=== PATIENT | female | born 1950 | race Caucasian/White ===

== ENCOUNTER 2018-08-22 08:30 | Emergency (ER) | payer MEDICARE ==
[2018-08-22 08:37] VITALS: TEMP 98.2
--- NOTE | 2018-08-22 09:05 | ED ---
General Adult HPI - General Chief complaint: Arrhythmia/Palpitations Stated complaint: palpitations Time Seen by Provider: 08/22/18 08:42 Source: patient, RN notes reviewed Mode of arrival: wheelchair Limitations: no limitations - History of Present Illness Initial comments: Patient is a pleasant 68-year-old female presenting to the emergency Department with complaints of palpitations. Onset of symptoms was this morning. Symptoms lasted around a half an hour. Patient felt her heart racing. No pain. Symptoms have resolved on their own. Patient is currently symptom-free. No history of similar symptoms previously. No associated dyspnea or nausea or diaphoresis. No previous history of dysrhythmia. Patient states she did find out that there was a family history of atrial fibrillation. - Related Data Home Medications Medication Instructions Recorded Confirmed Atorvastatin [Lipitor] 10 mg PO HS 08/22/18 08/22/18 Calcium Carbonate [Calcium] 600 mg PO DAILY 08/22/18 08/22/18 Losartan Potassium 50 mg PO HS 08/22/18 08/22/18 Vit C/E/Zn/Coppr/Lutein/Zeaxan 1 cap PO DAILY 08/22/18 08/22/18 [Preservision Areds 2 Softgel] Allergies Allergy/AdvReac Type Severity Reaction Status Date / Time diphenhydramine AdvReac Rapid Verified 08/22/18 09:09 [From Benadryl] Heart Rate Review of Systems ROS Statement: Those systems with pertinent positive or pertinent negative responses have been documented in the HPI. ROS Other: All systems not noted in ROS Statement are negative. Constitutional: Denies: fever Eyes: Denies: eye pain ENT: Denies: ear pain Respiratory: Denies: cough, dyspnea Cardiovascular: Reports: palpitations. Denies: chest pain Endocrine: Denies: fatigue Gastrointestinal: Denies: abdominal pain Genitourinary: Denies: dysuria Musculoskeletal: Denies: back pain Skin: Denies: rash Neurological: Denies: weakness Past Medical History Past Medical History: Hyperlipidemia, Hypertension Additional Past Medical History / Comment(s): MACULAR DEGENERATION History of Any Multi-Drug Resistant Organisms: None Reported Past Surgical History: No Surgical Hx Reported Past Psychological History: No Psychological Hx Reported Smoking Status: Never smoker Past Alcohol Use History: Occasional Past Drug Use History: None Reported General Exam Limitations: no limitations General appearance: alert, in no apparent distress Head exam: Present: atraumatic Eye exam: Present: normal appearance, PERRL ENT exam: Present: normal oropharynx Neck exam: Present: normal inspection Respiratory exam: Present: normal lung sounds bilaterally Cardiovascular Exam: Present: regular rate, normal rhythm, normal heart sounds Expanded Peripheral pulses: 2+: Radial (R), Radial (L), Dorsalis Pedis (R), Dorsalis Pedis (L) GI/Abdominal exam: Present: soft. Absent: tenderness Extremities exam: Present: normal inspection. Absent: pedal edema, calf tenderness Neurological exam: Present: alert Psychiatric exam: Present: normal affect, normal mood Skin exam: Present: normal color Course Vital Signs 08/22/18 08/22/18 08/22/18 08:34 09:06 09:20 Temperature 98.2 F Pulse Rate 77 75 Respiratory 16 53 H 12 Rate Blood Pressure 153/81 137/80 O2 Sat by Pulse 96 95 Oximetry EKG Findings - EKG Comments: EKG Findings:: Sinus rhythm with occasional premature atrial complex. LA 124. QRS 76. QT 370. QTc 434. Normal axis. Normal QRS. No acute ST change. Medical Decision Making - Medical Decision Making Patient reevaluated and resting comfortably in bed. Patient remained symptom- free. 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 Patient updated on results and need for follow-up. - Lab Data Result diagrams: 08/22/18 09:10 08/22/18 09:10 Lab Results 08/22/18 08/22/18 08/22/18 Range/Units 09:10 09:10 09:10 WBC 5.9 (3.8-10.6) k/uL RBC 4.74 (3.80-5.40) m/uL Hgb 14.7 (11.4-16.0) gm/dL Hct 45.0 (34.0-46.0) % MCV 95.1 (80.0-100.0) fL MCH 31.1 (25.0-35.0) pg MCHC 32.8 (31.0-37.0) g/dL RDW 12.7 (11.5-15.5) % Plt Count 191 (150-450) k/uL Neutrophils % 77 % Lymphocytes % 14 % Monocytes % 6 % Eosinophils % 2 % Basophils % 0 % Neutrophils # 4.5 (1.3-7.7) k/uL Lymphocytes # 0.8 L (1.0-4.8) k/uL Monocytes # 0.3 (0-1.0) k/uL Eosinophils # 0.1 (0-0.7) k/uL Basophils # 0.0 (0-0.2) k/uL PT (9.0-12.0) sec INR (<1.2) APTT (22.0-30.0) sec Sodium 140 (137-145) mmol/L Potassium 4.5 (3.5-5.1) mmol/L Chloride 108 H (98-107) mmol/L Carbon Dioxide 25 (22-30) mmol/L Anion Gap 7 mmol/L BUN 13 (7-17) mg/dL Creatinine 0.77 (0.52-1.04) mg/dL Est GFR (CKD-EPI)AfAm >90 (>60 ml/min/1.73 sqM) Est GFR (CKD-EPI)NonAf 78 (>60 ml/min/1.73 sqM) Glucose 118 H (74-99) mg/dL Calcium 9.3 (8.4-10.2) mg/dL Magnesium 2.0 (1.6-2.3) mg/dL Total Bilirubin 0.9 (0.2-1.3) mg/dL AST 24 (14-36) U/L ALT 26 (9-52) U/L Alkaline Phosphatase 71 (38-126) U/L Total Creatine Kinase 55 (30-135) U/L CK-MB (CK-2) 0.5 (0.0-2.4) ng/mL CK-MB (CK-2) Rel Index 0.9 Troponin I <0.012 (0.000-0.034) ng/mL Total Protein 6.9 (6.3-8.2) g/dL Albumin 4.1 (3.5-5.0) g/dL TSH 1.100 (0.465-4.680) mIU/L Free T4 1.24 (0.78-2.19) ng/dL Free T3 pg/mL 4.0 (2.8-5.3) pg/ml 08/22/18 Range/Units 09:10 WBC (3.8-10.6) k/uL RBC (3.80-5.40) m/uL Hgb (11.4-16.0) gm/dL Hct (34.0-46.0) % MCV (80.0-100.0) fL MCH (25.0-35.0) pg MCHC (31.0-37.0) g/dL RDW (11.5-15.5) % Plt Count (150-450) k/uL Neutrophils % % Lymphocytes % % Monocytes % % Eosinophils % % Basophils % % Neutrophils # (1.3-7.7) k/uL Lymphocytes # (1.0-4.8) k/uL Monocytes # (0-1.0) k/uL Eosinophils # (0-0.7) k/uL Basophils # (0-0.2) k/uL PT 10.1 (9.0-12.0) sec INR 1.0 (<1.2) APTT 21.4 L (22.0-30.0) sec Sodium (137-145) mmol/L Potassium (3.5-5.1) mmol/L Chloride (98-107) mmol/L Carbon Dioxide (22-30) mmol/L Anion Gap mmol/L BUN (7-17) mg/dL Creatinine (0.52-1.04) mg/dL Est GFR (CKD-EPI)AfAm (>60 ml/min/1.73 sqM) Est GFR (CKD-EPI)NonAf (>60 ml/min/1.73 sqM) Glucose (74-99) mg/dL Calcium (8.4-10.2) mg/dL Magnesium (1.6-2.3) mg/dL Total Bilirubin (0.2-1.3) mg/dL AST (14-36) U/L ALT (9-52) U/L Alkaline Phosphatase (38-126) U/L Total Creatine Kinase (30-135) U/L CK-MB (CK-2) (0.0-2.4) ng/mL CK-MB (CK-2) Rel Index Troponin I (0.000-0.034) ng/mL Total Protein (6.3-8.2) g/dL Albumin (3.5-5.0) g/dL TSH (0.465-4.680) mIU/L Free T4 (0.78-2.19) ng/dL Free T3 pg/mL (2.8-5.3) pg/ml - Radiology Data Radiology results: image reviewed (Chest x-ray shows no acute process) Disposition Clinical Impression: Palpitations Disposition: HOME SELF-CARE Condition: Stable Instructions: Heart Palpitations (ED) Additional Instructions: Please follow-up with primary care physician in the next day or 2 for recheck. You may need Holter monitor. You may also need cardiac echo done. Return for increased heart rate, chest pain, difficulty breathing, worsening or change in symptoms or other concerns. Is patient prescribed a controlled substance at d/c from ED?: No Referrals: Ryan Ross MD [Primary Care Provider] - 1-2 days Time of Disposition: 10:55
[2018-08-22 09:31] LABS: Basophils % (A) 0 %; Eosinophils # (A) 0.1 k/uL (0-0.7); Eosinophils % (A) 2 %; HGB 14.7 gm/dL (11.4-16.0); Lymphocytes # (A) 0.8 k/uL (1.0-4.8); Lymphocytes % (A) 14 %; MCH 31.1 pg (25.0-35.0); MCHC 32.8 g/dL (31.0-37.0); MCV 95.1 fL (80.0-100.0); Mean Platelet Volume 8.2; Monocytes # (A) 0.3 k/uL (0-1.0); Monocytes % (A) 6 %; Neutrophils # (A) 4.5 k/uL (1.3-7.7); Neutrophils % (A) 77 %; Platelet Count 191 k/uL (150-450); RBC 4.74 m/uL (3.80-5.40); RDW 12.7 % (11.5-15.5); WBC 5.9 k/uL (3.8-10.6)
--- NOTE | 2018-08-22 09:36 | XR ---
EXAMINATION TYPE: XR chest 2V DATE OF EXAM: 08/22/2018 COMPARISON: NONE HISTORY: Shortness of breath TECHNIQUE: Frontal and lateral views of the chest are obtained. FINDINGS: Scattered senescent parenchymal changes noted. Hyperinflation compatible with COPD. No evidence for infiltrate. No evidence for atelectasis. Heart size is stable. Mediastinal structures are stable and grossly unremarkable. No evidence for hilar prominence. Degenerative changes dorsal spine. IMPRESSION: 1. No evidence for acute pulmonary disease.
[2018-08-22 09:44] LABS: ALT 26 U/L (9-52); AST 24 U/L (14-36); Albumin 4.1 g/dL (3.5-5.0); Alkaline Phosphatase 71 U/L (38-126); Anion Gap 7 mmol/L; Blood Urea Nitrogen 13 mg/dL (7-17); Calcium 9.3 mg/dL (8.4-10.2); Carbon Dioxide 25 mmol/L (22-30); Chloride 108 mmol/L (98-107); Glucose 118 mg/dL (74-99); Potassium 4.5 mmol/L (3.5-5.1); Sodium 140 mmol/L (137-145); Total Bilirubin 0.9 mg/dL (0.2-1.3); Total Protein 6.9 g/dL (6.3-8.2)
[2018-08-22 09:48] LABS: Partial Thromboplastin Time 21.4 sec (22.0-30.0); Prothrombin Time 10.1 sec (9.0-12.0)
[2018-08-22 09:55] LABS: Creatine Kinase 55 U/L (30-135)
[2018-08-22 10:01] LABS: T4, Free (Free Thyroxine) 1.24 ng/dL (0.78-2.19)
[2018-08-22 10:09] LABS: Creatine Kinase MB 0.5 ng/mL (0.0-2.4); Troponin I <0.012 ng/mL (0.000-0.034)
[2018-08-22 11:10] VITALS: BP 127/71; PULSE 73; RESP 16
== END 2018-08-22 11:08 | disposition home or self-care (01) ==
LOC: EC 08:30
DX: R00.2 Palpitations (principal); E78.5 Hyperlipidemia, unspecified; I10 Essential (primary) hypertension; Z79.899 Other long term (current) drug therapy; Z88.8 Allergy status to other drugs, medicaments and biological substances
CPT/HCPCS: 36415; 71046; 80053; 82550; 82553; 83735; 84439; 84443; 84481; 84484; 85025; 85610; 85730; 93005; 99285

== ENCOUNTER 2021-03-18 06:07 | Day surgery (SDC) | payer MEDICARE ==
[2021-03-14 16:06] VITALS: BMI 23.9
[~2021-03-18 06:07] MED LIST: SODIUM CHLORIDE 0.9% 1,000 ML IV SCH
[2021-03-18 06:46] VITALS: RESP 16; TEMP 98.1
[2021-03-18] MEDS ORDERED: MIDAZOLAM 2 MG/2 ML VIAL IV ONE (07:34)
[2021-03-18] MEDS ORDERED: LIDOCAINE 1% INJ 10MG/ML (20 ML MDV) SQ ONE (07:35)
--- NOTE | 2021-03-18 08:04 | P.EPPROC ---
- EP Procedure Note Electrophysiology Procedure Note: Loop monitor implant Primary physicians: Central Lab Technician: Dr. Nguyen Indication: High risk of atrial fibrillation/AF detection Patient was brought to the EP lab in a fasting state. Written informed consent was obtained prior to the procedure. The left pectoral area was prepped and draped per protocol. Intravenous antibiotic was administered preoperatively. A subcutaneous Loop monitor was implanted successfully and the wound was closed per protocol. The device was programmed to detect significant juliane- arrhythmic and tachy-arrhythmic events, per protocol. Device and programming details: Programmed to AF detection Patient underwent EP procedure under conscious sedation/moderate sedation, monitoring of the level of consciousness and physiologic parameters including but not limited to vital signs and oxygenation. Patient tolerated the procedure well without any acute complications. Start time: 735 Stop time: 244
[2021-03-18 08:32] VITALS: BP 151/76; PULSE 73
== END 2021-03-18 08:28 | disposition home or self-care (01) ==
LOC: CATHEP 06:07
PROVIDERS: ATTEND Internal Medicine Clinical Cardiac Electrophysiology
DX: I47.1 Supraventricular tachycardia (principal); I10 Essential (primary) hypertension; E78.5 Hyperlipidemia, unspecified; Z79.899 Other long term (current) drug therapy; Z20.822 Contact with and (suspected) exposure to COVID-19
CPT/HCPCS: 33285; 87635; C1764; J2250; J0690; J2001

== ENCOUNTER 2021-09-05 12:51 | Day surgery (SDC) | payer MEDICARE ==
[2021-09-03 14:28] VITALS: BMI 24.7
[~2021-09-05 12:51] MED LIST changes: +LACTATED RINGERS 1,000 ML IV SCH; +LIDOCAINE 1% (10MG/ML) FOR IV START INTRADERMA PRN; +MORPHINE SULFATE 2 MG/ML SYRINGE IV PRN; +ONDANSETRON 4 MG/2 ML VIAL IVP ONE; -SODIUM CHLORIDE 0.9% 1,000 ML IV SCH
[2021-09-05] MEDS: SODIUM CHLORIDE 0.9% 1,000 ML IV SCH (13:28)
[2021-09-05] MEDS ORDERED: PROPOFOL 10 MG/ML 20 ML VIAL IV ONE (15:38)
[2021-09-05] MEDS ORDERED: ISOPROTERENOL 250 MCG/1.25 ML SYR IV ONE (15:38)
[2021-09-05] MEDS ORDERED: .fentaNYL (PF) 50 MCG/ML 2 ML AMP ONE (15:38)
[2021-09-05] MEDS ORDERED: LIDOCAINE 1% INJ 10MG/ML (20 ML MDV) ONE ×2 (15:38→15:43)
[2021-09-05] MEDS ORDERED: HEPARIN SODIUM,PORCINE 10,000 UNIT/ML 1 ML VIAL ONE (15:38)
[2021-09-05] MEDS ORDERED: MIDAZOLAM 2 MG/2 ML VIAL ONE (15:38)
[2021-09-05] MEDS ORDERED: LIDOCAINE 1% INJ 10MG/ML (20 ML MDV) SQ ONE (16:09)
[2021-09-05] MEDS ORDERED: HEPARIN SOD,PORK IN 0.45% NACL 25,000 UNIT in 0.45% NACL 1 250ML.BAG IV ONE (16:11)
[2021-09-05] MEDS ORDERED: ACETAMINOPHEN TAB 325 MG TAB PO PRN (18:08)
[2021-09-05] MEDS ORDERED: SODIUM CHLORIDE 0.9% 1,000 ML IV ONE ×2 (18:14→19:12)
--- NOTE | 2021-09-05 18:30 | P.EPPROC ---
- EP Procedure Note Electrophysiology Procedure Note: PROCEDURE A. fib ablation/cryoablation the pulmonary veins DIAGNOSIS Atrial fibrillation, symptomatic, refractory to therapy Paroxysmal RESULT No left atrial appendage mass seen on intracardiac echo complex right pulmonary venous anatomy Successful A. fib ablation/pulmonary vein isolation of all veins using cryo- ablation Complete entrance block in all veins confirmed Right-sided pulmonary veins tributaries were selectively isolated. Patient had a complex right PVanatomy No evidence for phrenic nerve injury Esophageal deflection YES , right-sided esophagus PROCEDURE DETAILS Patient was brought to the EP lab in a fasting state. Written informed consent was obtained prior to the procedure. Procedure performed under general anesthesia After initial muscle relaxant use, muscle relaxants were not given thereafter in order to assess phrenic nerve during procedure. Patient prepped and draped as per protocol Full cryo-set up with standard preparation of the cryoablation tools done. Femoral Venous access obtained on the right and left groins Venous and arterial Sheaths placed. Diagnostic catheters for the high right atrium, phrenic nerve stimulation and pacing, His bundle, RV and coronary sinus placed Intracardiac echo catheter placed. Long sheath placed in the right atrium Left and right transseptal catheterization performed under intracardiac echo guidance. Intravenous heparin with aCT above 300 Later, catheter positioning and balloon positioning in the left atrium, under intracardiac echo guidance Diagnostic EP study with Drug infusion Coronary sinus pacing and recording Sinus cycle length 741 ms, SC interval 97, QRS 86 and QT 371 ms Sinus recovery times at 600, 504 100 ms were 888 ms, 877 ms and 973 ms. AV node Wenckebach block 400 ms AH 98 and HV 41 ms Transseptal catheterization performed RA pressure 7/4/5 LA pressure 16/3/10 Transseptal catheterization performed with standard sheath. The cryoablation sheath was then placed with an over the wire exchange without any acute complications. All 4 pulmonary veins were isolated in the following sequence: Left superior followed by left inferior followed by right superior followed by right inferior The cryo-ablation balloon was placed at the os of each vein 1.5 mL of IV dye was injected to confirm an occluded vein Goal during cryoablation was to achieve complete occlusion of the pulmonary vein, achieve -30 degrees C at 30 seconds and achieve -40 degrees C at 60 seconds and a time to effect of less than 60-90 seconds, . If not the balloon was repositioned to obtain this result After completion of Cryoblation with durations from 180-240 seconds, entrance block was confirmed with the Attain circular catheter in a roving fashion around the antrum of the pulmonary veins Phrenic nerve pacing was performed from the SVC, right innominate vein area and diaphragm voltage was monitored. Diaphragmatic contractions were also monitored manually for strength of contraction. Parameter goals for each cryo freeze Complete occlusion of the appropriate vein -30 degrees C by 30 seconds -40 degrees C by 60 seconds Minimum between minus 40-55 degrees C Thaw time greater than 10 seconds Balloon visualized by intracardiac echo The esophagus was intubated. Esophageal Temperature monitoring with a CIRCA catheter formed. Esophageal deflection for hypothermia of the esophagus below 30 degrees C Left superior pulmonary vein Complete isolation, entrance block Left inferior pulmonary vein Complete isolation, entrance block The right-sided veins had a complex anatomy with multiple tributaries opening into the antra Each were selectively isolated. This took a longer time than usual Right superior pulmonary vein, during phrenic nerve pacing Complete isolation, entrance block Right inferior pulmonary vein, during phrenic nerve pacing Complete isolation, entrance block At the end of the procedure the Achieve catheter was once again used to check for entrance block Phrenic nerve stimulation was performed to confirm diaphragmatic stimulation the end of the procedure Cine fluoroscopy was performed at the very end of the procedure to confirm movement of both diaphragms with inspiration and expiration At the end of the procedure the patient was extubated Heparin was reversed Venous sheaths were removed and hemostasis assured performed Vascade closure device for all punctures. This took additional time PROCEDURES PERFORMED Diagnostic EP study CS pacing and recording Left and right transseptal catheterization Catheter the mapping of the tachycardia (NOT 3D mapping) Intracardiac echocardiography Pulmonary vein isolation with transseptal and comprehensive EPS, [id number] Drug Infusion +[id number] Long procedure on account of complex right pulmonary venous anatomy Vascade closure of all venous access sites
--- NOTE | 2021-09-05 18:38 | P.HPCAR ---
History of Present Illness This is Dr. Nguyen dictating an H/P on this patient The patient was interviewed and examined IMPRESSION / ASSESSMENT: Paroxysmal atrial fibrillation with RVR Sinus bradycardia on low-dose verapamil Hypertension, well controlled PLAN: Cryoablation of the pulmonary veins for management of paroxysmal atrial fibrillation which is frequent and associated with RVR Continue anticoagulation HPI Patient continues to have recurrent episodes of atrial fibrillation with RVR up to 200 beats a minute These episodes can last for at least an hour The ventricular rates of very rapid When she is in sinus rhythm her heart rate in the 60s Her blood pressure is well controlled and she is anticoagulated with ELIQUIS Sinus bradycardia on low-dose verapamil ROS: No fever chills or rigors, no cough, phlegm or expectoration, no nausea, vomiting or diarrhea, no hematuria, dysuria, no musculoskeletal complaints, no strokes or seizures, no skin lesions. EXAMINATION: 98.5F, pulse rate in the 80s, respirations normal and nonlabored Blood pressure 129/61 mmHg normal pulse ox No JVD no carotid bruits Normal heart sounds normal S1 normal S2 Clear lungs no rhonchi no crackles Abdomen is soft Extremities warm no edema REVIEW OF LABS, ECG & MEDICAL DATA Negative PCR for coronavirus Physical Exam Vitals: Vital Signs Temp Pulse Resp BP Pulse Ox 09/05/21 13:26 98.5 F 81 18 129/61 97 Intake and Output 09/05/21 09/05/21 09/05/21 06:59 14:59 22:59 Intake Total 20 968 Balance 20 968 Intake: IV 20 968 Other: Weight 67 kg Past Medical History Past Medical History: Atrial Fibrillation, Eye Disorder, Hyperlipidemia, Hypertension Additional Past Medical History / Comment(s): MACULAR DEGENERATION.-GETS INJECTIONS IN LT EYE EVERY 6 WEEKS FOR MAC. DEG. History of Any Multi-Drug Resistant Organisms: None Reported Past Surgical History: No Surgical Hx Reported Additional Past Surgical History / Comment(s): Cataracts removed. Colonoscopy. LOOP RECORDER INSERTION 02/2021 Past Anesthesia/Blood Transfusion Reactions: No Reported Reaction, Motion Sickness Additional Past Anesthesia/Blood Transfusion Reaction / Comment(s): Has never had general anesthesia. Smoking Status: Never smoker - Past Family History Brother(s) Family Medical History: Cancer Additional Family Medical History / Comment(s): Pancreatic cancer. Physical Examination Vital Signs Temp Pulse Resp BP Pulse Ox 09/05/21 13:26 98.5 F 81 18 129/61 97 Intake and Output 09/05/21 09/05/21 09/05/21 06:59 14:59 22:59 Intake Total 20 968 Balance 20 968 Intake: IV 20 968 Other: Weight 67 kg Results Current Medications Generic Name Dose Route Start Last Admin Trade Name Freq PRN Reason Stop Dose Admin Acetaminophen 650 mg 09/05/21 18:08 Acetaminophen Tab 325 Mg Tab PO 10/05/21 18:09 Q6HR PRN Mild Pain Apixaban 5 mg 09/05/21 21:00 Apixaban 5 Mg Tab PO 10/05/21 21:01 BID REGAN Protocol Atorvastatin Calcium 10 mg 09/05/21 21:00 Atorvastatin 10 Mg Tab PO 10/05/21 21:01 HS REGAN Sodium Chloride 1,000 mls @ 20 mls/hr 09/05/21 06:04 09/05/21 13:28 Saline 0.9% IV 10/05/21 06:05 970 mls .Q24H REGAN Administration Acetaminophen 1,000 mg/ IV 100 mls @ 400 mls/hr 09/05/21 19:00 Solution IVPB 09/05/21 19:14 ONCE ONE Lidocaine HCl 0.1 ml 09/05/21 06:04 Lidocaine 1% (10mg/Ml) For Iv Start INTRADERMA 10/05/21 06:05 PER PROTOCOL PRN IV Start Losartan Potassium 50 mg 09/05/21 21:00 Losartan 50 Mg Tab PO 10/05/21 21:01 HS REGAN Morphine Sulfate 2 mg 09/05/21 07:00 Morphine Sulfate 2 Mg/Ml Syringe IV 09/05/21 23:00 Q5M PRN Pain Control Sodium Chloride 12 ml 09/05/21 21:00 Sodium Chloride 0.9% Flush 10 Ml Syringe IV 10/05/21 21:01 Q12HR REGAN Verapamil HCl 40 mg 09/05/21 21:00 Verapamil 40 Mg Tab PO 10/05/21 21:01 BID REGAN Intake and Output 09/05/21 09/05/21 09/05/21 06:59 14:59 22:59 Intake Total 20 968 Balance 20 968 Intake: IV 20 968 Other: Weight 67 kg Patient Weight 09/06/21 06:59 Weight 67 kg
--- NOTE | 2021-09-05 18:39 | P.PRLE ---
RE: Rubin Montiel Dear Ryan Conklin underwent successful cryoablation the pulmonary veins for management of very frequent episodes of paroxysmal atrial fibrillation with a very rapid ventricular response despite verapamil She tolerated the procedure well without any acute complications I will recommend in termination of ELIQUIS Thank you for entrusting me with the care of the patient Warm regards Sincerely Alex Nguyen
[2021-09-05] MEDS ORDERED: ACETAMINOPHEN IV (For NPO) 1,000 MG/100 ML VIAL IVPB ONE (18:43)
[2021-09-05] MEDS ORDERED: HYDROmorphone 0.5 MG/0.5 ML SYRINGE SQ ONE (18:50)
[2021-09-05] MEDS ORDERED: ACETAMINOPHEN IV (For NPO) 1,000 MG in EMPTY BAG 1 BAG IVPB ONE (19:00)
[2021-09-05] MEDS: APIXABAN 5 MG TAB PO SCH (20:48)
[2021-09-05] MEDS: VERAPAMIL 40 MG TAB PO SCH (20:49)
[2021-09-05] MEDS ORDERED: LOSARTAN 50 MG TAB PO SCH (21:00)
[2021-09-05] MEDS ORDERED: ATORVASTATIN 10 MG TAB PO SCH (21:00)
[2021-09-06] MEDS: VERAPAMIL 40 MG TAB PO SCH (08:26)
[2021-09-06] MEDS: APIXABAN 5 MG TAB PO SCH (08:26)
[2021-09-06] MEDS ORDERED: INFLUENZA VACC HIGH-DOSE (65+) 240 MCG/0.7 ML SYRINGE IM ONE (09:00)
[2021-09-06 09:33] VITALS: RESP 20
[2021-09-06] MEDS: SODIUM CHLORIDE 0.9% 1,000 ML IV SCH (09:39)
--- NOTE | 2021-09-06 09:59 | P.DS ---
Providers Attending physician: Alex Nguyen Primary care physician: [facility] Course: Patient is doing well from a cardiac standpoint. She denies any chest discomfort the morning line yesterday she had a bit of discomfort but this is resolved completely She does have a little bit of a sore throat No breathing trouble no dizziness no lightheadedness runs of healed well there is no groin pain bilaterally On examination her blood pressures 121 60 mmHg she is afebrile 98.4F Normal respirations pulse rate is normal in the 80s occasional PACs and PVCs are noted on telemetry No postprocedure atrial fibrillation Abdomen is soft nontender no guarding Lungs are clear no rhonchi no crackles Normal heart sounds normal S1 normal S2 no murmurs No hematoma in the groins Impression Paroxysmal atrial fibrillation with very frequent episodes associated with RVR Status post cryoablation of the pulmonary veins With mechanical stimulation atrial fibrillation was repeatedly induced with manipulation around the left superior pulmonary veins Following cryoablation of the left superior pulmonary vein and the antrum just outside at, A. fib could not be induced with mechanical stimulation She has a complex right pulmonary venous anatomy The right-sided pulmonary veins were individually and selectively isolated, completely Plan Continue ELIQUIS Continue cardiac medications unchanged We will see her again in about 2 weeks She may go home today from a cardiac standpoint. She is stable Plan - Discharge Summary Discharge Rx Participant: Yes New Discharge Prescriptions: No Action Vit C/E/Zn/Coppr/Lutein/Zeaxan [Preservision Areds 2 Softgel] 1 cap PO DAILY Losartan Potassium 50 mg PO HS Atorvastatin [Lipitor] 10 mg PO HS Calcium Carbonate [Calcium] 600 mg PO DAILY Verapamil [Isoptin] 40 mg PO BID Apixaban [Eliquis] 5 mg PO BID Discharge Medication List Atorvastatin [Lipitor] 10 mg PO HS 08/22/18 [History] Calcium Carbonate [Calcium] 600 mg PO DAILY 08/22/18 [History] Losartan Potassium 50 mg PO HS 08/22/18 [History] Vit C/E/Zn/Coppr/Lutein/Zeaxan [Preservision Areds 2 Softgel] 1 cap PO DAILY 08/22/18 [History] Verapamil [Isoptin] 40 mg PO BID 03/14/21 [History] Apixaban [Eliquis] 5 mg PO BID 09/03/21 [History] Follow up Appointment(s)/Referral(s): Alex Nguyen MD [STAFF PHYSICIAN] - 2 Weeks Activity/Diet/Wound Care/Special Instructions: Post EP study - Ablation instructions 1. Keep access sites dry for 2 days. 2. No heavy lifting or straining for 2 days. 3. Avoid bending the hips repeatedly for 2 days. 4. You may go up and down stairs slowly Call if the following is noted 1. Bleeding, increasing swelling or pain at the access sites. 2. Increasing chest discomfort, especially upon taking a deep breath. 3. Increasing shortness of breath, at rest or with exertion. 4. Undue cough / phlegm 5. Difficulty or pain while swallowing. 6. Pain or change in color in the extremities. 7. Fever, chills, rigors. 8. Increasing headache or neurologic symptoms. 9. Dizziness, fainting, palpitations Continue all cardiac medications unchanged including ELIQUIS Follow Dr. Nguyen/Suad Serrano in the next 2 weeks Discharge Disposition: HOME SELF-CARE
[2021-09-06 11:38] VITALS: BP 119/61; PULSE 82; TEMP 98.3
== END 2021-09-06 13:17 | disposition home or self-care (01) ==
LOC: CATHEP 12:51 → 3SCARD 18:30 → CATHEP 09-06 13:17
PROVIDERS: ATTEND Internal Medicine Clinical Cardiac Electrophysiology
DX: I48.0 Paroxysmal atrial fibrillation (principal); R00.1 Bradycardia, unspecified; Z20.822 Contact with and (suspected) exposure to COVID-19; I10 Essential (primary) hypertension; E78.5 Hyperlipidemia, unspecified; H35.30 Unspecified macular degeneration; Z98.49 Cataract extraction status, unspecified eye; Z80.0 Family history of malignant neoplasm of digestive organs; Z79.899 Other long term (current) drug therapy; Z88.8 Allergy status to other drugs, medicaments and biological substances; Z79.01 Long term (current) use of anticoagulants
CPT/HCPCS: 93623; 93662; 93609; 93656; 87635; 90662; G0008; J2001; J0131; J1170; J1644